=== PATIENT | male | born 1955 | race Caucasian/White ===

== ENCOUNTER 2020-04-28 02:05 | Inpatient (IN) | payer BC, MEDICARE ==
[~2020-04-28] VITALS: Ht 170.2 cm; Wt 76.8 kg
[2020-04-28] MEDS ORDERED: APIX2.5T PO (02:42)
[2020-04-28] MEDS ORDERED: INSU100I25 SQ (02:42)
[2020-04-28] MEDS ORDERED: SPIR50TA5 PO (02:42)
[2020-04-28] MEDS ORDERED: NEBI20TA2 PO (02:42)
[2020-04-28] MEDS ORDERED: ATOR-2 PO (02:42)
[2020-04-28] MEDS ORDERED: NOVLG SQ (02:42)
[2020-04-28] MEDS ORDERED: OLME40TA18 PO (02:42)
[2020-04-28] MEDS ORDERED: ALBU90AE INH (02:42)
[2020-04-28] MEDS ORDERED: LIPA1CAP18 PO (02:42)
[2020-04-28] MEDS ORDERED: ACET-1 PO (02:42)
[2020-04-28] MEDS ORDERED: magnesium hydroxide 30ml (MOM) UD suspension PO PRN (02:45)
[2020-04-28] MEDS ORDERED: magnesium Cl slow-release 64mg tablet PO PRN (02:45)
[2020-04-28] MEDS ORDERED: magnesium 2GM in 50ml NS 50 ML IV PRN (02:45)
[2020-04-28] MEDS ORDERED: acetaminophen 325mg tablet PO PRN (02:45)
[2020-04-28] MEDS ORDERED: normal saline 1000ml 1,000 ML IV SCH (02:45)
[2020-04-28] MEDS ORDERED: ondansetron/PF 4mg/2ml inj IV PRN (02:45)
[2020-04-28] MEDS ORDERED: magnesium 4gm in 100ml NS 100 ML IV PRN (02:45)
[2020-04-28] MEDS ORDERED: potassium CL 10mEq/100ml bag 100 ML IV PRN ×2 (02:45)
[2020-04-28] MEDS ORDERED: mag hydrox/Alum hydrox/simeth 30ml oral suspension PO PRN (02:45)
[2020-04-28] MEDS ORDERED: potassium Cl 20 mEq SR tablet PO PRN ×2 (02:45)
[2020-04-28] MEDS ORDERED: HYDROmorphone inj. 0.5 MG/0.5 ML DISP.SYRIN IV PRN (02:45)
[2020-04-28 04:00] VITALS: BP 105/69
[2020-04-28] MEDS ORDERED: glucagon, human recombinant 1mg kit SUBCUT PRN (05:20)
[2020-04-28] MEDS ORDERED: insulin Lispro (HumaLOG) vial - multi-dose SQ SCH (05:20)
[2020-04-28] MEDS ORDERED: dextrose 50%-water 50ml dispensing syringe IV PRN ×2 (05:20)
[2020-04-28] MEDS ORDERED: dextrose ORAL solution 15 GM/59 ML bottle PO PRN ×2 (05:20)
[2020-04-28] MEDS ORDERED: MESSAGE TO PHARMACY PO ONE (05:20)
--- NOTE | 2020-04-28 06:30 | NUR ---
Patient in room [facility]. I have received report from Aidee MCLAIN and had the opportunity to ask questions and assume patient care.
[2020-04-28] MEDS ORDERED: NEBIVOLOL 20 MG PO SCH (08:00)
[2020-04-28] MEDS ORDERED: losartan 50mg tablet PO SCH (08:00)
[2020-04-28] MEDS ORDERED: atorvastatin 20mg tablet PO SCH (08:00)
[2020-04-28] MEDS ORDERED: K and/or MAG REPLACEMENT MC SCH (08:00)
[2020-04-28] MEDS ORDERED: apixaban 2.5mg tablet PO SCH (08:00)
[2020-04-28] MEDS ORDERED: OLMESARTAN MEDOXOMIL PO SCH (08:00)
[2020-04-28] MEDS ORDERED: spironolactone 25 MG tablet PO SCH (08:00)
[2020-04-28 08:09] VITALS: BP 106/56
[2020-04-28 10:40] LABS: BASOPHILS % (AUTO) 0.4 % (0-1); EOSINOPHILS % (AUTO) 0.2 % (0-6); HEMOGLOBIN 13.5 g/dl (14.0-17.9); LYMPHOCYTES # (AUTO) 0.7 X10'3 (1.1-4.8); LYMPHOCYTES % (AUTO) 9.1 % (21-51); MEAN CORPUSCULAR HEMOGLOBIN 30.9 PG (27.0-31.0); MEAN CORPUSCULAR VOLUME 93.6 FL (78-98); MEAN PLATELET VOLUME 9.1 FL (7.4-10.4); MONOCYTES # (AUTO) 0.8 X10'3 (0-0.9); NEUTROPHILS # (AUTO) 6.1 X10'3 (1.8-7.7); NEUTROPHILS % (AUTO) 80.3 % (42-75); PLATELET COUNT 114 X10'3 (140-440); RED BLOOD COUNT 4.39 X10'6 (4.70-6.10); RED CELL DISTRIBUTION WIDTH 14.6 % (11.5-14.5); WHITE BLOOD COUNT 7.6 X10'3 (4.5-11.0)
[2020-04-28 10:53] LABS: PARTIAL THROMBOPLASTIN TIME 29 SECONDS (22-32)
[2020-04-28 10:56] LABS: ALANINE AMINOTRANSFERASE 40 U/L (12-78); ALBUMIN 3.4 G/DL (3.4-5.0); ALKALINE PHOSPHATASE 140 IU/L (46-116); ANION GAP 12 (8-16); ASPARTATE AMINO TRANSFERASE 19 U/L (10-37); BILIRUBIN,TOTAL 0.5 MG/DL (0.1-1.0); BLOOD UREA NITROGEN 39 MG/DL (7-18); BUN/CREATININE RATIO 12.5 (5.4-32.0); CALCIUM 8.4 MG/DL (8.5-10.1); CHLORIDE 111 MMOL/L (99-107); CREATININE 3.11 MG/DL (0.60-1.10); GLUCOSE 195 MG/DL (70-104); POTASSIUM 4.6 MMOL/L (3.5-5.1); SODIUM 144 MMOL/L (135-145); TOTAL CARBON DIOXIDE 21.5 MMOL/L (24-32); TOTAL PROTEIN 6.7 G/DL (6.4-8.2); eGFR 20 ML/MIN
[2020-04-28 10:59] VITALS: BP 113/75
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
--- NOTE | 2020-04-28 15:41 | NUR ---
Ranjit Surg [id number] Re: [address] Pugh Talked with patient, and he states he is ready for discharge. Call me for the details Please . Thanks Ranjit This message sent to physician .
--- NOTE | 2020-04-28 17:17 | NUR ---
Patient discharged to care of his at this time. Patient IV taken out at time of discharge canula was whole and intact upon discharge. Patient left with all belongings. Patient understands discharge teaching and will follow up with primary physician in one weeks time. Patient understands to return to ER if abdomen pain returns. Patient did not receive any new medications upon discharge.
[2020-04-28] MEDS ORDERED: metoprolol tartrate 50mg tablet PO SCH (20:00)
[2020-04-28] MEDS ORDERED: diatr meglu/diatrizoate 30ml oral sol.-(3 dose) bottle PO SCH (21:00)
[2020-04-28] MEDS ORDERED: insulin glargine (Lantus) pen - multi-dose SQ SCH (21:00)
== END 2020-04-28 17:10 | disposition home or self-care (01) | DRG 389 ==
LOC: ER 02:05 → SUR 3N 02:45 → UNDOADMIN 03:47 → SUR 3N 03:47 → CMPBEDREQ 11:00 → UNDODISIN 17:10
PROVIDERS: ADMIT Family Medicine; ATTEND Family Medicine
DX: K56.609 Unspecified intestinal obstruction, unspecified as to partial versus complete obstruction (principal); K86.1 Other chronic pancreatitis; I12.9 Hypertensive chronic kidney disease with stage 1 through stage 4 chronic kidney disease, or unspecified chronic kidney disease; F17.200 Nicotine dependence, unspecified, uncomplicated; E11.22 Type 2 diabetes mellitus with diabetic chronic kidney disease; N18.9 Chronic kidney disease, unspecified; Z86.718 Personal history of other venous thrombosis and embolism; Z90.49 Acquired absence of other specified parts of digestive tract; Z79.899 Other long term (current) drug therapy; Z79.4 Long term (current) use of insulin
CPT/HCPCS: 36415; 80053; 82948; 83036; 85025; 85610; 85730; 87081; 96361; 96374; 96375; 97161; 99285; G0378; J1170; J1815; J2405; J7030

== ENCOUNTER 2020-11-27 07:03 | Day surgery (SDC) | payer MEDICARE, BC ==
[~2020-11-27] VITALS: Ht 172.7 cm; Wt 75.4 kg
[2020-11-27] VITALS (14 sets, daily range): BP systolic 133–165; BP diastolic 75–98
[~2020-11-27 07:03] MED LIST: ACET-1 PO; ALBU90AE INH; APIX2.5T PO; ATOR-2 PO; INSU100I25 SQ; LIPA1CAP18 PO; NEBI20TA2 PO; NOVLG SQ; OLME40TA18 PO; SPIR50TA5 PO
[2020-11-27] MEDS ORDERED: normal saline 1000ml 1,000 ML IV PRN (07:25)
[2020-11-27 09:14] LABS: BASOPHILS # (AUTO) 0.1 X10'3 (0-0.2); BASOPHILS % (AUTO) 1.4 % (0-1); EOSINOPHILS # (AUTO) 0.3 X10'3 (0-0.9); HEMATOCRIT 35.2 % (42.0-52.0); HEMOGLOBIN 11.8 g/dl (14.0-17.9); LYMPHOCYTES # (AUTO) 1.1 X10'3 (1.1-4.8); LYMPHOCYTES % (AUTO) 16.3 % (21-51); MEAN CORPUSCULAR HEMOGLOBIN 30.8 PG (27.0-31.0); MEAN CORPUSCULAR HGB CONC 33.5 g/dL (33.0-36.5); MEAN CORPUSCULAR VOLUME 91.7 FL (78-98); MEAN PLATELET VOLUME 9.6 FL (7.4-10.4); MONOCYTES # (AUTO) 0.6 X10'3 (0-0.9); MONOCYTES % (AUTO) 8.5 % (2-12); NEUTROPHILS # (AUTO) 4.6 X10'3 (1.8-7.7); NEUTROPHILS % (AUTO) 68.8 % (42-75); PLATELET COUNT 110 X10'3 (140-440); RED BLOOD COUNT 3.84 X10'6 (4.70-6.10); RED CELL DISTRIBUTION WIDTH 14.2 % (11.5-14.5); WHITE BLOOD COUNT 6.7 X10'3 (4.5-11.0)
[2020-11-27] MEDS ORDERED: CLON0.1T2 PO (09:14)
[2020-11-27] MEDS ORDERED: midazolam 2 mg/2 ml injection ONE (09:59)
[2020-11-27] MEDS ORDERED: fentaNYL/PF 50MCG/1 ML 2ML syringe ONE (09:59)
[2020-11-27] MEDS ORDERED: gelatin sponge, absorbable (Gelfoam 12-7MM) sponge TP ONE (10:16)
== END 2020-11-27 15:00 | disposition home or self-care (01) ==
LOC: SSTAY O 07:03
PROVIDERS: ATTEND Radiology Vascular & Interventional Radiology
DX: K76.9 Liver disease, unspecified (principal); R16.0 Hepatomegaly, not elsewhere classified; I12.9 Hypertensive chronic kidney disease with stage 1 through stage 4 chronic kidney disease, or unspecified chronic kidney disease; Z72.0 Tobacco use; N18.9 Chronic kidney disease, unspecified; E78.5 Hyperlipidemia, unspecified; Z98.890 Other specified postprocedural states; Z79.899 Other long term (current) drug therapy; Z79.4 Long term (current) use of insulin; Z90.49 Acquired absence of other specified parts of digestive tract; E11.22 Type 2 diabetes mellitus with diabetic chronic kidney disease
CPT/HCPCS: 36415; 47000; 77012; 82948; 85025; 85610; J2250; J3010; 99152; 99153

== ENCOUNTER 2021-03-09 09:02 | Day surgery (SDC) | payer MEDICARE, BC ==
[2021-03-09] VITALS (13 sets, daily range): BP systolic 117–175; BP diastolic 49–88
[~2021-03-09] VITALS: Ht 170.2 cm; Wt 72.2 kg
[~2021-03-09 09:02] MED LIST changes: -ACET-1 PO; -ALBU90AE INH; +CLON0.1T2 PO; -LIPA1CAP18 PO
[2021-03-09] MEDS ORDERED: normal saline 1000ml 1,000 ML IV PRN (09:45)
[2021-03-09 10:33] LABS: HEMATOCRIT 34.1 % (42.0-52.0); HEMOGLOBIN 11.4 g/dl (14.0-17.9); MEAN CORPUSCULAR HEMOGLOBIN 30.4 PG (27.0-31.0); MEAN CORPUSCULAR VOLUME 90.9 FL (78-98); RED BLOOD COUNT 3.75 X10'6 (4.70-6.10); WHITE BLOOD COUNT 7.2 X10'3 (4.5-11.0)
[2021-03-09 10:34] LABS: BASOPHILS # (AUTO) 0.1 X10'3 (0-0.2); BASOPHILS % (AUTO) 0.7 % (0-1); EOSINOPHILS # (AUTO) 0.2 X10'3 (0-0.9); EOSINOPHILS % (AUTO) 2.8 % (0-6); LYMPHOCYTES # (AUTO) 0.7 X10'3 (1.1-4.8); LYMPHOCYTES % (AUTO) 10.2 % (21-51); MEAN CORPUSCULAR HGB CONC 33.4 g/dL (33.0-36.5); MEAN PLATELET VOLUME 9.6 FL (7.4-10.4); MONOCYTES # (AUTO) 0.6 X10'3 (0-0.9); MONOCYTES % (AUTO) 8.3 % (2-12); NEUTROPHILS # (AUTO) 5.6 X10'3 (1.8-7.7); NEUTROPHILS % (AUTO) 78 % (42-75); PLATELET COUNT 93 X10'3 (140-440); RED CELL DISTRIBUTION WIDTH 14.6 % (11.5-14.5)
[2021-03-09 10:42] LABS: ANION GAP 10 (8-16); BLOOD UREA NITROGEN 18 MG/DL (7-18); BUN/CREATININE RATIO 9.6 (5.4-32.0); CALCIUM 8.7 MG/DL (8.5-10.1); CHLORIDE 106 MMOL/L (99-107); CREATININE 1.87 MG/DL (0.60-1.10); GLUCOSE 235 MG/DL (70-104); SODIUM 141 MMOL/L (135-145); TOTAL CARBON DIOXIDE 25.5 MMOL/L (24-32); eGFR 36 ML/MIN
[2021-03-09] MEDS ORDERED: midazolam 1 mg/ML 2ml injection ONE (11:40)
[2021-03-09] MEDS ORDERED: fentaNYL/PF 50MCG/1 ML 2ML syringe ONE (11:40)
== END 2021-03-09 15:15 | disposition home or self-care (01) ==
LOC: SSTAY O 09:02
PROVIDERS: ATTEND Radiology Diagnostic Radiology
DX: K76.89 Other specified diseases of liver (principal); C7A.8 Other malignant neuroendocrine tumors; Z20.822 Contact with and (suspected) exposure to COVID-19; E11.22 Type 2 diabetes mellitus with diabetic chronic kidney disease; I12.9 Hypertensive chronic kidney disease with stage 1 through stage 4 chronic kidney disease, or unspecified chronic kidney disease; N18.9 Chronic kidney disease, unspecified; E78.5 Hyperlipidemia, unspecified; K58.9 Irritable bowel syndrome, unspecified; Z79.4 Long term (current) use of insulin; Z87.19 Personal history of other diseases of the digestive system; Z98.890 Other specified postprocedural states; Z90.49 Acquired absence of other specified parts of digestive tract; Z79.01 Long term (current) use of anticoagulants; Z79.899 Other long term (current) drug therapy
CPT/HCPCS: 36415; 47000; 76942; 80048; 85025; 85610; 87635; 99152; 99153; C9803; J2250; J3010

== ENCOUNTER 2021-04-22 08:54 | Day surgery (SDC) | payer MEDICARE, BC ==
[~2021-04-22] VITALS: Ht 172.7 cm; Wt 68.2 kg
[2021-04-22 09:02] VITALS: BP 159/92
[2021-04-22] MEDS ORDERED: SPIR50TA5 PO (09:13)
[2021-04-22] MEDS ORDERED: fentaNYL/PF 50MCG/1 ML 2ML syringe ONE (09:23)
[2021-04-22] MEDS ORDERED: MIDAZolam 1 MG/ML 5ML VIAL ONE (09:24)
[2021-04-22 10:10] VITALS: BP 126/67
[2021-04-22 10:20] VITALS: BP 124/67
[2021-04-22 10:30] VITALS: BP 131/74
[2021-04-22 10:40] VITALS: BP 138/76
== END 2021-04-22 11:00 | disposition home or self-care (01) ==
LOC: GI LAB 08:54
PROVIDERS: ATTEND Internal Medicine Gastroenterology
DX: C7A.00 Malignant carcinoid tumor of unspecified site (principal); K57.30 Diverticulosis of large intestine without perforation or abscess without bleeding; K62.1 Rectal polyp
CPT/HCPCS: 45380; G0500; J2250; J3010; J7040; 88305; 99152; 99153; A4620

== ENCOUNTER 2022-08-16 10:33 | Outpatient (CLI) | payer MEDICARE, BC ==
[~2022-08-16 10:33] MED LIST changes: -CLON0.1T2 PO
[2022-08-16 12:00] LABS: ALANINE AMINOTRANSFERASE 75 U/L (12-78); ALBUMIN 2.3 G/DL (3.4-5.0); ALBUMIN/GLOBULIN RATIO 0.5 (1.1-1.5); ALKALINE PHOSPHATASE 1029 IU/L (46-116); ANION GAP 11 (8-16); ASPARTATE AMINO TRANSFERASE 62 U/L (10-37); BILIRUBIN,TOTAL 1.1 MG/DL (0.1-1.0); BLOOD UREA NITROGEN 61 MG/DL (7-18); BUN/CREATININE RATIO 12.2 (5.4-32.0); CALCIUM 8.2 MG/DL (8.5-10.1); CHLORIDE 97 MMOL/L (99-107); CREATININE 4.99 MG/DL (0.60-1.10); GLUCOSE 120 MG/DL (70-104); POTASSIUM 4.1 MMOL/L (3.5-5.1); SODIUM 132 MMOL/L (135-145); TOTAL CARBON DIOXIDE 24.4 MMOL/L (24-32); TOTAL PROTEIN 6.6 G/DL (6.4-8.2); eGFR 12 ML/MIN
== END 2022-08-16 23:59 | disposition home or self-care (01) ==
LOC: LAB 10:33
PROVIDERS: ATTEND Family Medicine
DX: N17.9 Acute kidney failure, unspecified (principal)
CPT/HCPCS: 36415; 80053